=== PATIENT | male | born 1990 | race Asian ===

== ENCOUNTER 2023-07-30 09:51 | Outpatient (CLI) | payer OTHER ==
--- NOTE | 2023-07-30 10:20 | Sleep Patient Instructions ---
Sleep Center Visit Summary - Patient Visit Information Reason for Visit: Initial consult for evaluation of sleep disordered breathing and other sleep issues. - Patient Instructions Instructions Attached: Sleep Study Additional Instructions: You will be completing a sleep study, either an in-lab polysomnography (PSG) or home sleep study (HST). You will follow-up in the sleep care office after the sleep study is completed to hear the results and talk about therapy, if needed. You will be called by our office staff to schedule this appointment, but you may contact us with any questions. - Clinic Information Contact: [facility] [address] [place] [address] [email or web address] T: [phone]
--- NOTE | 2023-07-30 10:25 | SLEEP CARE CONSULTATION ---
Information from patient questionnaire entered by Sunita Vazquez. I have reviewed and concur with the information entered by Sunita Vazquez. This document represents the service I personally performed and the decisions made by me, Laurie Sandy ARNP. History of Present Illness Service Date and Time: 07/30/2023 0951 Reason for Visit: New patient Chief Complaint: reports: Unrefreshed sleep, Snoring, Observed pauses in breathing Usual bedtime: 10PM Time it takes to fall asleep: 15-30MIN Snores at night: Yes Observed to quit breathing while asleep: Yes Number of times waking at night: 0-1 Reasons for waking at night: reports: Choking, Gasping for air (couple of times in past, nothing regular), Other (UNKNOWN) Toss, Turn, or Twitch while sleeping: No Recalls having dreams: No Usually gets out of bed at: 0600 Feels refreshed in the morning: No Morning headache: Yes (3-4 days a week; last about an hour) Sleepy or fatigued during the day: Yes Ever fallen asleep while driving: No Takes day naps: Yes (3 days a week for about 30 minutes) Dreams during day naps: No Prior sleep studies: No Additional HPI information: I had the pleasure of seeing JOSE EDUARDO COLON today regarding the possibility of him having a sleep disorder. His current complaints are observed pauses in breathing, snoring and unrefreshed sleep. He says he talked to his flight surgeon about his daytime fatigue and waking up with headaches. He says his mood has been down, he has no energy and is tired throughout the day. He cannot remember when he last felt refreshed after sleeping. He has been told that he snores and will stop breathing according to roommates. He says he has snored since he was a kid but his fatigue started in the last year. He states his father has a CPAP and is the one who encouraged him to talk to his flight surgeon. - Parasomnia Symptoms Ever been unable to move upon waking from sleep: No Walks in sleep: No Talks in sleep: No Ever acted out dreams in sleep: No Ever felt weak in the knees when startled or emotional: No Bothered by creepy, crawly, restless sensations in legs: No Problems with memory or concentration: Yes (memory has been going down; concentration worse too) Subjective Initial [place] Sleepiness Scale score: 11 (07/30/23) Past Medical History Past Medical History: reports: Other (no significant medical history) Social History The patient's occupation is a AM. Patient is Single and lives in . Have you smoked in the past 12 months: No Alcohol use: Yes Alcohol amount and frequency: 1-2DRINKS 2-3XWEEK Caffeine use: Yes Caffeine amount and frequency: 2-3 DRINKS 4-5X WEEKS Family History Family history of sleep disordered breathing: Yes Family Hx Sleep Apnea: Father: Snoring, Sleep apnea - Treated, Sibling: Snoring Allergies and Home Medications Known drug allergies: No Drug allergies reviewed: Yes Home medication list reviewed: Yes Allergy and home medication list: Allergies No Known Drug Allergies Allergy (Verified 07/30/23 09:54) Home Medications No Known Home Medications 07/30/23 [History] Review of Systems Weight gain over past 5 years: 5-10 Cardiovascular: denies: high blood pressure Gastrointestinal: denies: heartburn Neurological: denies: headaches Psychiatric: denies: anxiety, depression Ear/Nose/Throat: denies: tonsillectomy Physical Exam Vital signs obtained and entered by: SUNITA Freire MA Blood Pressure: 96/69 (RIGHT ARM) Cuff size: regular Heart Rate: 69 O2 Saturation: 96 Height: 6 ft 4.5 in Weight: 219 lb 12.8 oz Body Mass Index: 26.4 BMI Classification: Overweight Neck circumference: 15.75 Mouth and throat: narrow oropharynx Soft palate: long Hard palate: normal Uvula: normal Uvula visualization: 0% Mallampati Class IV Tongue: enlarged in size with teeth gonzalez on lateral edges Tonsils: 2+ Neck: normal w/o lymphadenopathy or thyromegaly Heart: regular rate and rhythm Lungs: clear bilaterally Impression and Plan 1. Suspected Obstructive Sleep Apnea-Hypopnea Syndrome, as suggested by a history of loud and irregular snoring, observed cessation of breath while asleep, morning headache, unrefreshed sleep and cognitive impairment. Narrow oropharynx and obesity are common predisposing factors for obstructive sleep apnea-hypopnea syndrome. I recommend proceeding to polysomnography to confirm the diagnosis and to assess severity. If the patient has significant sleep disordered breathing, a manual CPAP titration study will also be performed to find the optimal treatment pressure. I informed the patient of what the sleep studies involve and after some discussion, obtained agreement to proceed. The pathophysiology of obstructive sleep apnea-hypopnea syndrome was discussed with the patient and health risks of cardiovascular and cerebrovascular disease if not treated. Risks of drowsy driving discussed in detail and patient advised to avoid long distance driving and to hide puller at the first sign of drowsiness. Patient agreed to plan. * Schedule polysomnography. * Avoid long distance driving or driving when feeling sleepy. * Avoid alcohol, sedative and muscle relaxant around bedtime. * Attempt to lose weight. * Review instructions provided by trained office staff on how to prepare for the sleep study. * Return for follow-up after sleep study completed. Counseling Topics: Weight loss health impact Plan: PSG and followup Visit Type: In Office Time Spent with Patient (minutes): 30 Provider Statement: I spent 100% of the Face to Face Visit with the patient with greater than 50% spent counseling the patient and coordination of care.
[2023-07-30 10:31] VITALS: BP 96/69; O2SAT 96
== END 2023-07-30 09:52 | disposition home or self-care (01) ==
LOC: SC 09:51
PROVIDERS: ATTEND Nurse Practitioner Family
DX: R06.83 Snoring (principal); G47.8 Other sleep disorders; R06.81 Apnea, not elsewhere classified; R51.9 Headache, unspecified; R53.83 Other fatigue; E66.3 Overweight; Z68.26 Body mass index [BMI] 26.0-26.9, adult
CPT/HCPCS: 99203; 99212

== ENCOUNTER 2023-08-17 19:04 | Outpatient (CLI) | payer OTHER | END 2023-08-17 19:05 | disposition home or self-care (01) | LOC: SC 19:04 | PROVIDERS: ATTEND Nurse Practitioner Family | DX: R06.83 Snoring (principal); G47.8 Other sleep disorders; R06.81 Apnea, not elsewhere classified; R51.9 Headache, unspecified; R53.83 Other fatigue; E66.3 Overweight; Z68.26 Body mass index [BMI] 26.0-26.9, adult | CPT/HCPCS: 95810 ==

== ENCOUNTER 2023-08-31 14:49 | Outpatient (CLI) | payer OTHER ==
--- NOTE | 2023-08-31 15:13 | Sleep Patient Instructions ---
Sleep Center Visit Summary - Patient Visit Information Reason for Visit: Sleep study follow-up - Patient Instructions Additional Instructions: Your sleep study today was negative for significant sleep disordered breathing. You were found to have episodes of snoring. There are different ways to control snoring including weight loss, oral devices made by a dentist or surgical options through ENT specialist. You should not use oral devices that do not fit properly because they can affect your bite. You should also check insurance coverage of oral devices for snoring because they may not be cover well. You may obtain a referral to an ENT specialist through your primary provider. You will be completing a sleep study, home sleep study (HST) to verify results of PSG. You will follow-up in the sleep care office after the sleep study is completed to hear the results and talk about therapy, if needed. You will be called by our office staff to schedule this appointment, but you may contact us with any questions. - Clinic Information Contact: [facility] [address] [place] [address] [email or web address] T: [phone]
--- NOTE | 2023-08-31 15:18 | SLEEP CARE CONSULTATION ---
Information from patient questionnaire entered by Dinora Vazquez. I have reviewed and concur with the information entered by Dinora Vazquez. This document represents the service I personally performed and the decisions made by , Laurie Sandy ARNP. History of Present Illness Service Date and Time: 08/31/2023 144 Initial [place] Sleepiness Scale score: 11 (07/30/23) Current [place] Sleepiness Scale score: 11 (08/31/23) Additional HPI information: JOSE EDUARDO COLON returns for follow up and results of the recently performed polysomnography. The patient was informed of the following findings: No significant sleep disordered breathing with an average AHI of 3.6 and jessica oxygen saturation of 86%. I explained the pathophysiology behind obstructive sleep apnea. Patient does not have sleep apnea and was advised how weight gain could increase the risk of developing sleep apnea in the future. I strongly encouraged the patient to lose weight. Patient has light snoring. Snoring can be reduced by weight loss. Weight loss is best achieved with diet consult. Patient instructed to contact PCP for referral. Snoring can also be treated with an oral appliance from a dentist. Advised to check insurance coverage. In addition, an ENT evaluation can be do to see if other treatment is indicated. Patient counseled not drink alcohol less than 4 hours before bedtime as it can increase snoring and apnea. Patient was cautioned about risks of drowsy driving until sleepiness symptoms resolve. Patient denies drowsy driving. Sleep Study - Results Type of Sleep Study: Polysomnography (COMPLETED 08/17/23) Prior sleep studies: No Polysomnography/Home Sleep Study results: IMPRESSION: The quality of the study is good. The patient had reduced sleep efficiency due to sleep onset insomnia and frequent awakenings during the night. The sleep architecture was abnormal for sleep fragmentation and reduced amount of time spent in REM and slow wave sleep (N3). Respiratory monitoring showed no significant sleep disordered breathing (AHI = 3.6) or hypoxia (jessica oxygen saturation of 86 % and only 0.2% to the total sleep time was spent with oxygen saturation below 90%). The patient slept adequately in supine position (supine AHI = 3.8; non-supine = 2.67). Snore was infrequent and light in intensity. There was no significant periodic leg movement of sleep. Cardiac rhythm was normal sinus rhythm without significant arrhythmia. No abnormal behavior (parasomnia) observed during the night. Allergies and Home Medications Known drug allergies: No Drug allergies reviewed: Yes Home medication list reviewed: Yes (no changes) Allergy and home medication list: Allergies No Known Drug Allergies Allergy (Verified 08/27/23 15:55) Review of Systems Review of systems same as previous: Yes (NO CHANGE) Physical Exam Vital signs obtained and entered by: DINORA Freire MA Blood Pressure: 121/85 (LEFT ARM) Cuff size: regular Heart Rate: 74 O2 Saturation: 98 Height: 6 ft 4.5 in Weight: 223 lb 9.6 oz Body Mass Index: 26.9 BMI Classification: Overweight Impression and Plan 1. Suspected Obstructive Sleep Apnea-Hypopnea Syndrome, as suggested by a history of loud and irregular snoring, observed cessation of breath while asleep, gasping or choking in sleep, unrefreshed sleep, and excessive daytime sleepiness. His PSG was not diagnostic of sleep apnea but patient did not feel it was a good representation of his sleep. He thinks he sleeps differently at home and would like to repeat the sleep study to verify results. I agree that his symptoms do suggest possible apneas and I recommend proceeding to polysomnography to confirm the diagnosis and to assess severity. I obtained agreement to proceed. The pathophysiology of obstructive sleep apnea-hypopnea syndrome was discussed with the patient and health risks of cardiovascular and cerebrovascular disease if not treated. Risks of drowsy driving discussed in detail and patient advised to avoid long distance driving and to well puller head at the first sign of drowsiness. Patient agreed to plan. 2. Snoring but no significant sleep disordered breathing. Patient advised that often weight loss will reduce snoring as well as apnea risk. An oral appliance can also be used for snoring. This would require a dental consultation. Patient cautioned not to use other online appliances as can cause bite issues. Patient is advised to check if insurance will cover. An ENT consult can also be helpful to determine if any other treatment is an option. 3. Overweight, unspecified. Currently patients BMI is 26.9. Obesity increases the risk of apnea, CPAP pressure requirements and overall health risks especially cardiovascular and diabetes. Thus patient is advised to lose weight. * Schedule polysomnography/HST * Avoid long distance driving or driving when feeling sleepy. * Avoid alcohol, sedative and muscle relaxant around bedtime. * Attempt to lose weight. * Review instructions provided by trained office staff on how to prepare for the sleep study. * Return for follow-up after sleep study completed. Counseling Topics: Weight loss health impact Follow up with Sleep Care in: other (after HST) Visit Type: In Office Time Spent with Patient (minutes): 20 Provider Statement: I spent 100% of the Face to Face Visit with the patient with greater than 50% spent counseling the patient and coordination of care.
[2023-08-31 15:26] VITALS: BP 121/85; O2SAT 98
== END 2023-08-31 14:50 | disposition home or self-care (01) ==
LOC: SC 14:49
PROVIDERS: ATTEND Nurse Practitioner Family
DX: R06.83 Snoring (principal); E66.3 Overweight; Z68.26 Body mass index [BMI] 26.0-26.9, adult
CPT/HCPCS: 99212; 99213

== ENCOUNTER 2023-09-22 12:18 | Outpatient (CLI) | payer OTHER | END 2023-09-22 12:19 | disposition home or self-care (01) | LOC: SC 12:18 | PROVIDERS: ATTEND Nurse Practitioner Family | DX: G47.33 Obstructive sleep apnea (adult) (pediatric) (principal); R09.02 Hypoxemia | CPT/HCPCS: 95806 ==

== ENCOUNTER 2023-10-07 14:43 | Outpatient (CLI) | payer OTHER ==
--- NOTE | 2023-10-07 15:16 | Sleep Patient Instructions ---
Sleep Center Visit Summary - Patient Visit Information Reason for Visit: Sleep Study Follow up - Patient Instructions Instructions Attached: CPAP Additional Instructions: You are being started on CPAP therapy with pressure setting at 4-15 cmH2O. You w ill need to call the sleep care office to set up your follow up once you have your APAP machine and we will schedule a visit to check compliance and response to therapy at that time. You may call the office with any concerns about pressure feeling too low or too much for adjustment, if needed. You should contact DME supplier for any questions or concerns about mask or equipment. Please call office to schedule a follow up appointment in the sleep care office one month after obtaining new device. - Clinic Information Contact: [facility] [address] [place] [address] [email or web address] T: [phone]
--- NOTE | 2023-10-07 15:18 | SLEEP CARE CONSULTATION ---
Information from patient questionnaire entered by Dinora Vazquez. I have reviewed and concur with the information entered by Dinora Vazquez. This document represents the service I personally performed and the decisions made by me, Laurie Sandy ARNP. History of Present Illness Service Date and Time: 10/07/2023 1443 Initial [place] Sleepiness Scale score: 11 (07/30/23) Current [place] Sleepiness Scale score: 11 (10/07/23) Additional HPI information: JOSE EDUARDO COLON returns for follow up and results of the recently performed home sleep study. The sleep study showed mild obstructive sleep apnea with an average AHI of 7.7 and jessica oxygen saturation of 83%. I explained the pathophysiology behind obstructive sleep apnea. We then spent quite a bit of time discussing different treatment options. For mild obstructive sleep apnea, surgery and oral appliance are alternatives to nasal CPAP therapy but in moderate or severe cases, nasal CPAP is the most effective and reliable treatment. I reviewed the impact of weight changes on sleep apnea and strongly recommended losing weight. After some discussion, the patient opted to go with the nasal CPAP therapy. Nasal autoCPAP set at 4-15 cmH20 will be ordered with rationale explained. A manual titration study will be ordered if unable to find optimal pressure with office adjustments. I explained how CPAP machine works and what to expect when using the machine. Using CPAP every night in order to get used to it was emphasized. Patient advised to put CPAP mask on before getting into bed so as not to fall asleep without CPAP. To assist acclimation to CPAP use, it could also be used for a short time during day while reading or watching TV. The patient was instructed to call the CPAP supplier to discuss any mechanical problem that may occur. If the mask given is uncomfortable or is difficult to keep on through the night even with adjustment, contact the CPAP supplier as many will replace with another mask style if notified before 30 days. If snoring or perceives is not getting enough air or too much air from the machine, notify this office. Patient counseled not drink alcohol less than 4 hours before bedtime as it can increase snoring and apnea. Patient was cautioned about risks of drowsy driving until sleepiness symptoms resolve. Patient denies drowsy driving. Sleep Study - Results Type of Sleep Study: Polysomnography (HST COMPLETED 08/17/23 POLY COMPLETED 09/22/23) Prior sleep studies: No Polysomnography/Home Sleep Study results: Physician Impression: The quality of the study is good. The length of the study is adequate (> 240 minutes). Please also see the tabulated and graphic data. 1. Obstructive Sleep Apnea-Hypopnea (ICD-10 G47.33), mild, with an AHI of 7.7/hr and jessica SaO2 of 83%. During the study, the patient had 26 apneas (26 obstructive, 0 central, 0 mixed) and 30 hypopneas. The longest episode lasted 105.0 seconds. The respiratory events occurred independently of body position (supine AHI was 7.9 and non-supine, 5.29). 2. Hypoxemia (ICD-10 R09.02), mild, with the lowest oxygen saturation of 83 % and 2.6 minutes with SaO2 under 90%. Baseline oxygen saturation was normal (Average oxygen saturation was 95%). Allergies and Home Medications Known drug allergies: No Drug allergies reviewed: Yes Home medication list reviewed: Yes (no changes) Allergy and home medication list: Allergies No Known Drug Allergies Allergy (Verified 10/05/23 14:14) Review of Systems Review of systems same as previous: Yes (NO CHANGE) Physical Exam Vital signs obtained and entered by: DINORA Freire MA Blood Pressure: 145/83 (RIGHT ARM) Cuff size: regular Heart Rate: 80 O2 Saturation: 100 Height: 6 ft 4.5 in Weight: 216 lb 3.2 oz Body Mass Index: 25.9 BMI Classification: Overweight Impression and Plan 1. Obstructive Sleep Apnea-Hypopnea Syndrome, mild, with lowest oxygen saturation of 83%. Obviously this is the cause of the patients symptoms of unrefreshed sleep, and excessive daytime sleepiness. As mentioned above, the patient will be started on nasal autoCPAP therapy with pressure set at 4-15 cmH2 O. A manual titration study will be completed if unable to find optimal treatment pressure with office adjustments. Compliance guidelines also reviewed. A copy of compliance guidelines will be given for reference at check out. Because the apnea is more severe supine, I instructed to avoid sleeping supine using pillow positioning until able to start CPAP use. 2. Hypoxemia, mild, with a jessica oxygen saturation of 83% and 2.6 minutes spent under 90%. The baseline oxygen saturation was normal with an average oxygen saturation of 95%. * Nasal auto CPAP therapy, pressure at 4-15 cm H2O. * Maintain a healthy weight. * Avoid alcohol consumption near bedtime. * Avoid supine sleep until using CPAP. * The patient is again cautioned about driving until sleepiness completely resolves. * Return one month after CPAP obtained. I will assess response to therapy and compliance at that time. Counseling Topics: Weight control Visit Type: In Office Time Spent with Patient (minutes): 20 Provider Statement: I spent 100% of the Face to Face Visit with the patient with greater than 50% spent counseling the patient and coordination of care.
[2023-10-07 15:24] VITALS: BP 145/83; O2SAT 100
== END 2023-10-07 14:44 | disposition home or self-care (01) ==
LOC: SC 14:43
PROVIDERS: ATTEND Nurse Practitioner Family
DX: G47.33 Obstructive sleep apnea (adult) (pediatric) (principal)
CPT/HCPCS: 99212; 99213

== ENCOUNTER 2023-12-16 14:44 | Outpatient (CLI) | payer OTHER ==
--- NOTE | 2023-12-16 15:03 | Sleep Patient Instructions ---
Sleep Center Visit Summary - Patient Visit Information Reason for Visit: First compliance follow-up - Patient Instructions Additional Instructions: You were here for follow up of CPAP therapy. You will be continued on CPAP therapy with pressure at 6-10 cmH2O. Please let us know if the pressure change is uncomfortable and we can make further adjustments of the pressure. You should follow up with sleep care in 1-2 months. You may contact us sooner for any questions or concerns. - Clinic Information Contact: [facility] [address] [place] [address] [email or web address] T: [phone]
--- NOTE | 2023-12-16 15:07 | SLEEP CARE CONSULTATION ---
Information from patient questionnaire entered by Sunita Vazquez. I have reviewed and concur with the information entered by Sunita Vazquez. This document represents the service I personally performed and the decisions made by , Laurie Sandy ARNP. History of Present Illness Service Date and Time: 12/16/2023 144 Previous diagnosis: Mild, Obstructive Sleep Apnea-Hypopnea Syndrome AHI: 7.7 (2-14-24) Reason for follow up: first compliance Equipment type: CPAP (RESMED Airsense 11, 10/18/2023) Equipment obtained from: Other ([facility]; getting supplies) Mask style: Nasal Mask brand: Respironics (Wisp) Backup mask available: No (will keep old mask when replaced) Prior sleep studies: No Type of Sleep Study: Polysomnography (HST COMPLETED 08/17/23 POLY COMPLETED 09/22/23) HPI additional information: JOSE EDUARDO COLON was diagnosed to have mild, AHI 7.7, obstructive sleep apnea-hypopnea syndrome and returned today for CPAP therapy first compliance follow-up. Sleep Study - Results Type of Sleep Study: Polysomnography (HST COMPLETED 08/17/23 POLY COMPLETED 09/22/23) Prior sleep studies: No CPAP Compliance Data - Data Reviewed with Patient Average duration of nightly device use: 6 HRS 53 MINS Compliance rate %: 70 (10/19/23-11/17/23; 23/30 days used initially; 83% in last 30 days) Current pressure setting (cmH2O): 4-15 (median 6.3, avg 9.6, max 11) Average residual AHI: 3.0 Central apnea: 1.7 Obstructive apnea: 1 Hypopnea: 0.1 Average large leak: 0 L/min Subjective Patient concerns: reports: mask discomfort (sore on nose from cushion, improving), mask leak noise. denies: aerophagia, air blowing in eyes, condensation in mask/hose, nasal congestion, dry mouth, nose, throat, epistaxis Observed to snore while using device: No Current pressure setting perceived as: comfortable On therapy, patient: reports: sleeping better, awakening more refreshed, being more awake and alert during the day, more rested overall. denies: drowsiness while driving Initial [place] Sleepiness Scale score: 11 (07/30/23) Current [place] Sleepiness Scale score: 9 (12/16/23) Allergies and Home Medications Known drug allergies: No Drug allergies reviewed: Yes Home medication list reviewed: Yes (no changes) Allergy and home medication list: Allergies No Known Drug Allergies Allergy (Verified 12/13/23 12:04) Review of Systems Review of systems same as previous: Yes (NO CHANGE) Physical Exam Vital signs obtained and entered by: SUNITA Freire MA Blood Pressure: 116/77 (LEFT ARM) Cuff size: regular Heart Rate: 72 O2 Saturation: 98 Height: 6 ft 4.5 in Weight: 218 lb 12.8 oz Body Mass Index: 26.2 BMI Classification: Overweight Impression and Plan 1. Obstructive Sleep Apnea-Hypopnea Syndrome, mild, with good treatment compliance and good apnea control. On CPAP therapy, the patient has better sleep quality and is more rested overall. He has significant improvement of his sleep apnea and is getting comfortable using the CPAP. He has got soreness on top of nose from mask cushion but says it is improving with using the large size cushion. He likes the style of mask. The patients pressure will be changed to autoCPAP 6-10 cmH20 to reflect pressure being used. Patient advised to contact me if pressure change is uncomfortable so that it can be adjusted. Goals for apnea control discussed. Patient's apnea severity and rationale for treatment to reduce apnea, improve sleep quality and reduce cardiovascular and cerebrovascular events was reviewed. 2. Overweight, unspecified. Currently patients BMI is 26.2. Obesity increases the risk of apnea, CPAP pressure requirements and overall health risks especially cardiovascular and diabetes. Thus patient is advised to maintain a healthy weight. * Change auto CPAP pressure to 6-10 cmH2O * Notify me if snoring with mask or feeling that the pressure is too much or too little * Attempt to lose weight * Call this office if any problems using CPAP * Return for follow up in 1-2 months, or sooner if concerns arise Adjust device pressure to (cmH2O): 6-10 Counseling Topics: Spare mask, Weight control Follow up with Sleep Care in: 1-2 months Visit Type: In Office Time Spent with Patient (minutes): 22 Provider Statement: I spent 100% of the Face to Face Visit with the patient with greater than 50% spent counseling the patient and coordination of care.
[2023-12-16 15:15] VITALS: BP 116/77; O2SAT 98
== END 2023-12-16 14:45 | disposition home or self-care (01) ==
LOC: SC 14:44
PROVIDERS: ATTEND Nurse Practitioner Family
DX: G47.33 Obstructive sleep apnea (adult) (pediatric) (principal); E66.3 Overweight; Z68.26 Body mass index [BMI] 26.0-26.9, adult
CPT/HCPCS: 99212; 99213

== ENCOUNTER 2024-01-27 14:37 | Outpatient (CLI) | payer OTHER ==
--- NOTE | 2024-01-27 15:02 | Sleep Patient Instructions ---
Sleep Center Visit Summary - Patient Visit Information Reason for Visit: 6-week follow-up after pressure change - Patient Instructions Additional Instructions: You were here for follow up of CPAP therapy. You will be continued on CPAP therapy with pressure at 6-10 cmH2O. You should follow up with sleep care in 3 months. You may contact us sooner for any questions or concerns. - Clinic Information Contact: [facility] [address] [place] [phone] [email or web address] T: [phone]
--- NOTE | 2024-01-27 15:04 | SLEEP CARE CONSULTATION ---
Information from patient questionnaire entered by Sunita Vazquez. I have reviewed and concur with the information entered by Sunita Vazquez. This document represents the service I personally performed and the decisions made by me, Laurie Sandy ARNP. History of Present Illness Service Date and Time: 01/27/2024 143 Previous diagnosis: Mild, Obstructive Sleep Apnea-Hypopnea Syndrome AHI: 7.7 (09/22/23) Reason for follow up: other (6 WEEK F/U ) Equipment type: CPAP (RESMED Airsense 11, s/u 10/18/23) Equipment obtained from: Other ([facility]; getting supplies) Mask style: Nasal Mask brand: Respironics ([facility]) Backup mask available: Yes Last cushion change: 3 weeks Prior sleep studies: No Type of Sleep Study: Polysomnography (HST COMPLETED 08/17/23 POLY COMPLETED 09/22/23) HPI additional information: JOSE EDUARDO COLON was diagnosed to have mild, AHI 7.7, obstructive sleep apnea-hypopnea syndrome and returned today for CPAP therapy six week follow-up. Sleep Study - Results Type of Sleep Study: Polysomnography (HST COMPLETED 08/17/23 POLY COMPLETED 09/22/23) Prior sleep studies: No CPAP Compliance Data - Data Reviewed with Patient Average duration of nightly device use: 6 HRS 20 MINS Compliance rate %: 91 (12/13/23-01/25/24; 43/44 days used) Current pressure setting (cmH2O): 6-10 Average residual AHI: 1.9 Central apnea: 1.3 Obstructive apnea: 0.4 Hypopnea: 0.1 Average large leak: 0.2 L/min Subjective Patient concerns: denies: aerophagia, mask discomfort, air blowing in eyes, mask leak noise, condensation in mask/hose, nasal congestion, dry mouth, nose, throat, epistaxis Observed to snore while using device: No Current pressure setting perceived as: comfortable On therapy, patient: reports: sleeping better, awakening more refreshed, being more awake and alert during the day, more rested overall. denies: drowsiness while driving Initial [place] Sleepiness Scale score: 11 (07/30/23) Current [place] Sleepiness Scale score: 3 (01/27/24) Allergies and Home Medications Known drug allergies: No Drug allergies reviewed: Yes Home medication list reviewed: Yes (sertraline, bupropion) Allergy and home medication list: Allergies No Known Drug Allergies Allergy (Verified 01/26/24 08:12) Review of Systems Review of systems same as previous: Yes (NO CHANGE) Physical Exam Vital signs obtained and entered by: SUNITA Freire MA Blood Pressure: 138/84 (LEFT ARM) Cuff size: regular Heart Rate: 80 O2 Saturation: 100 Height: 6 ft 4.5 in Weight: 216 lb 6.4 oz Body Mass Index: 25.9 BMI Classification: Overweight Impression and Plan 1. Obstructive Sleep Apnea-Hypopnea Syndrome, mild, with good treatment compliance and good apnea control. On CPAP therapy, the patient has better sleep quality and is more rested overall. Patient has significant improvement of his sleep apnea and is comfortable with current CPAP use. He denies having any issues with using the mask and feels it has been a positive experience so far. I will have him come back in about 3 months for another check-in. Patient's apnea severity and rationale for treatment to reduce apnea, improve sleep quality and reduce cardiovascular and cerebrovascular events was reviewed. 2. Overweight, minimal. Currently patients BMI is 25.9. Obesity increases the risk of apnea, CPAP pressure requirements and overall health risks especially cardiovascular and diabetes. Thus patient is advised to maintain a healthy weight. * Continue auto CPAP pressure at 6-10 cmH2O * Notify me if snoring with mask or feeling that the pressure is too much or too little * Call this office if any problems using CPAP * Return for follow up in 3 months, or sooner if concerns arise Counseling Topics: Spare mask Follow up with Sleep Care in: 3 months Visit Type: In Office Time Spent with Patient (minutes): 11 Provider Statement: I spent 100% of the Face to Face Visit with the patient with greater than 50% spent counseling the patient and coordination of care.
[2024-01-27 15:18] VITALS: BP 138/84; O2SAT 100
== END 2024-01-27 14:38 | disposition home or self-care (01) ==
LOC: SC 14:37
PROVIDERS: ATTEND Nurse Practitioner Family
DX: G47.33 Obstructive sleep apnea (adult) (pediatric) (principal); E66.3 Overweight; Z68.25 Body mass index [BMI] 25.0-25.9, adult
CPT/HCPCS: 99212

== ENCOUNTER 2024-05-02 14:56 | Outpatient (CLI) | payer OTHER ==
--- NOTE | 2024-05-02 15:26 | Sleep Patient Instructions ---
Sleep Center Visit Summary - Patient Visit Information Reason for Visit: 4-month follow-up for PAP therapy - Patient Instructions Additional Instructions: You were here for follow up of CPAP therapy. You will be continued on CPAP therapy with pressure at 6-10 cmH2O. You should follow up with sleep care in 12 months. You may contact us sooner for any questions or concerns. - Clinic Information Contact: [facility] [address] [place] [phone] [email or web address] T: [phone]
--- NOTE | 2024-05-02 15:30 | SLEEP CARE CONSULTATION ---
Information from patient questionnaire entered by Ayla Howard. I have reviewed and concur with the information entered by Ayla Howard. This document represents the service I personally performed and the decisions made by , Laurie Sandy ARNP. History of Present Illness Service Date and Time: 05/02/2024 1456 Previous diagnosis: Mild, Obstructive Sleep Apnea-Hypopnea Syndrome AHI: 7.7 (09/2023) Reason for follow up: other (4-Month F/U) Equipment type: CPAP (Airsense 11, s/u 10/2023) Equipment obtained from: Other ([facility]; getting supplies) Mask style: Nasal (Wisp) Mask brand: Respironics Backup mask available: Yes Last cushion change: 2 months Prior sleep studies: No Type of Sleep Study: Polysomnography (HST COMPLETED 08/17/23 POLY COMPLETED 09/22/23) HPI additional information: JOSE EDUARDO COLON was diagnosed to have mild, AHI 7.7, obstructive sleep apnea-hypopnea syndrome and returned today for CPAP therapy four month follow-up. Sleep Study - Results Type of Sleep Study: Polysomnography (HST COMPLETED 08/17/23 POLY COMPLETED 09/22/23) Prior sleep studies: No CPAP Compliance Data - Data Reviewed with Patient Average duration of nightly device use: 5 h 40 min Compliance rate %: 62 (81/110 days used) Current pressure setting (cmH2O): 6-10 Average residual AHI: 2.0 Central apnea: 1.3 Obstructive apnea: 0.5 Hypopnea: 0 Average large leak: 0.1 L/min Subjective Missed days of use due to: reports: travel Patient concerns: reports: condensation in mask/hose. denies: aerophagia, mask discomfort, air blowing in eyes, mask leak noise, nasal congestion, dry mouth, nose, throat, epistaxis Observed to snore while using device: No Current pressure setting perceived as: comfortable On therapy, patient: reports: sleeping better, awakening more refreshed, being more awake and alert during the day, more rested overall. denies: drowsiness while driving Initial [place] Sleepiness Scale score: 11 (07/30/23) Current [place] Sleepiness Scale score: 10 (05/02/24) Allergies and Home Medications Known drug allergies: No Drug allergies reviewed: Yes Home medication list reviewed: Yes (no changes) Allergy and home medication list: Allergies No Known Drug Allergies Allergy (Verified 04/28/24 11:19) Review of Systems Review of systems same as previous: Yes (no changes) Physical Exam Vital signs obtained and entered by: Laurie Rodriguez NP Blood Pressure: 121/85 Cuff size: long (right arm) Heart Rate: 74 O2 Saturation: 97 Height: 6 ft 4.5 in Weight: 230 lb Body Mass Index: 27.6 BMI Classification: Overweight Impression and Plan 1. Obstructive Sleep Apnea-Hypopnea Syndrome, mild, with fair treatment compliance and good apnea control. On CPAP therapy, the patient has better sleep quality and is more rested overall. He says his compliance was affected by travel for work where he was unable to use his CPAP at times. He asked about trying an oral appliance but states he is from the [place] in about 3 months and is not sure exactly where he is going to end up. He thinks he may be moving but there is a possibility he may stay. We will put him as an annual follow-up and see him in the office if he does not move from the area. Otherwise, we discussed that he should follow-up wherever he moves to with a new sleep provider in the next year. He voiced understanding. Patient's apnea severity and rationale for treatment to reduce apnea, improve sleep quality and reduce cardiovascular and cerebrovascular events was reviewed. 2. Overweight, unspecified. Currently patients BMI is 27.6. Obesity increases the risk of apnea, CPAP pressure requirements and overall health risks especially cardiovascular and diabetes. Thus patient is advised to lose weight. * Continue auto CPAP pressure at 6-10 cmH2O * Notify me if snoring with mask or feeling that the pressure is too much or too little * Attempt to lose weight * Call this office if any problems using CPAP * Return for follow up in 12 months, or sooner if concerns arise Counseling Topics: Spare mask, Weight loss health impact Follow up with Sleep Care in: 1 year Visit Type: In Office Time Spent with Patient (minutes): 20 Provider Statement: I spent 100% of the Face to Face Visit with the patient with greater than 50% spent counseling the patient and coordination of care.
[2024-05-02 15:44] VITALS: BP 121/85; O2SAT 97
== END 2024-05-02 14:57 | disposition home or self-care (01) ==
LOC: SC 14:56
PROVIDERS: ATTEND Nurse Practitioner Family
DX: G47.33 Obstructive sleep apnea (adult) (pediatric) (principal); E66.3 Overweight; Z68.27 Body mass index [BMI] 27.0-27.9, adult
CPT/HCPCS: 99212; 99213